=== PATIENT | male | born 1985 | race Caucasian/White ===

== ENCOUNTER 2017-04-22 22:25 | Emergency (ER) | payer OTHER ==
[~2017-04-22] VITALS: Ht 170.2 cm; Wt 124.7 kg
[2017-04-22 22:31] VITALS: BP_SYST 162
[2017-04-22 23:40] VITALS: BP_SYST 154
== END 2017-04-22 23:40 | disposition home or self-care (01) ==
LOC: SED 22:25
DX: R51 Headache (principal)
CPT/HCPCS: 99283